=== PATIENT | male | born 1985 | race American Indian/Alaskan Native ===

== ENCOUNTER 2018-06-30 22:30 | Emergency (ER) | payer SELFPAY ==
[2018-06-30 22:35] VITALS: TEMP 97.8
--- NOTE | 2018-06-30 22:53 | C.PDOC ---
History Of Present Illness 32 year old male presents to the ED c/o pain redness and swelling to his right 5th toe. Patient reports he has been using OTC antifungal creams and ointment with no relief. Patient presents today because he states swelling increased. Patient denies fever, chills, rash, weakness, numbness, injury, fall, trauma. Time Seen by Provider: 06/30/18 22:49 Chief Complaint (Nursing): Lower Extremity Problem/Injury History Per: Patient History/Exam Limitations: no limitations Onset/Duration Of Symptoms: Days Current Symptoms Are (Timing): Still Present Recent travel outside of the [place]: No Additional History Per: Patient - Ankle/Foot Description Of Injury: Other Past Medical History Reviewed: Historical Data, Nursing Documentation, Vital Signs Vital Signs: Last Vital Signs Temp 97.8 F 06/30/18 22:33 Pulse 84 06/30/18 22:33 Resp 16 06/30/18 22:33 BP 141/93 H 06/30/18 22:33 Pulse Ox 99 06/30/18 22:33 - Medical History PMH: No Chronic Diseases Surgical History: No Surg Hx Family History: States: Unknown Family Hx - Social History Hx Alcohol Use: Yes Hx Substance Use: No Review Of Systems Constitutional: Negative for: Fever, Chills Musculoskeletal: Positive for: Foot Pain. Negative for: Back Pain, Leg Pain Skin: Negative for: Rash Neurological: Negative for: Weakness, Numbness, Headache, Dizziness Physical Exam - Physical Exam Appears: Non-toxic, No Acute Distress Skin: Normal Color, Warm, Dry Head: Atraumatic, Normacephalic Eye(s): bilateral: Normal Inspection Neck: Normal ROM, Supple Extremity: Capillary Refill (< 2 seconds), Other (bilateral feet with extra toe) Extremity: Right: Other (discolorated erythema at base of toenail, minimal swelling, macerated skin between 4th, 5th and 6th toes. No drainage, streaking, warm to touch), Bilateral: Atraumatic, No Pedal Edema, Normal Color And Temperature Pulses: Left Dorsalis Pedis: Normal, Right Dorsalis Pedis: Normal Neurological/Psych: Oriented x3, Normal Speech, Normal Cognition Gait: Steady ED Course And Treatment O2 Sat by Pulse Oximetry: 99 (On RA) Pulse Ox Interpretation: Normal Progress Note: Patient was advised to keep using antifungal OTC medications, given prescription for antibiotics. Patient was advised to follow up in 2 days for wound check and follow up with podiatry. Disposition Counseled Patient/Family Regarding: Diagnosis, Need For Followup, Rx Given - Disposition Referrals: Podiatry Clinic [Outside] Disposition: HOME/ ROUTINE Disposition Time: 22:51 Condition: STABLE Additional Instructions: Please follow up with PMD/ Podiatry Use antifungal crean or powder Keep feet clean Return to ER if increasing pain, swelling , redness or worse Prescriptions: Cephalexin [cephalexin] 500 mg PO Q6 #20 cap Instructions: Cellulitis (Skin Infection), Adult (DC), Athlete's Foot (DC) Forms: [employer] Interactive Video (French) - Clinical Impression Clinical Impression: Cellulitis of toe of right foot, Tinea pedis of right foot - PA / SOFTWARE SYSTEMS ARCHITECT / Resident Statement MD/DO has reviewed & agrees with the documentation as recorded. - Scribe Statement The provider has reviewed the documentation as recorded by the Scribe Neri Huang All medical record entries made by the Scribe were at my direction and personally dictated by me. I have reviewed the chart and agree that the record accurately reflects my personal performance of the history, physical exam, medical decision making, and the department course for this patient. I have also personally directed, reviewed, and agree with the discharge instructions and disposition.
[2018-06-30 23:13] VITALS: BP 110/70; PULSE 74; RESP 14
[2018-07-01 00:50] VITALS: O2SAT 99
== END 2018-06-30 23:13 | disposition home or self-care (01) ==
LOC: C.ER 22:30
DX: L03.031 Cellulitis of right toe (principal); B35.3 Tinea pedis